=== PATIENT | female | born 1940 | race Caucasian/White ===

== ENCOUNTER 2020-06-29 08:09 | Outpatient (REF) | payer MEDICARE, OTHER, SELFPAY ==
--- NOTE | ~2020-06-29 | XR_ITS ---
EXAMINATION: XR knee RT 2V, XR knee standing BI CLINICAL INFORMATION: Pain COMPARISON: None available at the time of this dictation. TECHNIQUE: Bilateral frontal, right lateral patella sunrise view. FINDINGS: BONES: No fracture or dislocation is present. JOINTS: Narrowing of joint spaces and developed osteophytes from the edges of articular surfaces suggest degenerative osteoarthritis. 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 No right knee joint effusions.
--- NOTE | ~2020-06-29 | XR_ITS ---
EXAMINATION: XR knee RT 2V, XR knee standing BI CLINICAL INFORMATION: Pain COMPARISON: None available at the time of this dictation. TECHNIQUE: Bilateral frontal, right lateral patella sunrise view. FINDINGS: BONES: No fracture or dislocation is present. JOINTS: Narrowing of joint spaces and developed osteophytes from the edges of articular surfaces suggest degenerative osteoarthritis. 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 No right knee joint effusions.
== END 2020-06-29 08:10 | disposition home or self-care (01) ==
LOC: HO.HOSX 08:09
PROVIDERS: Visit Provider Physician Assistant
DX: M25.561 Pain in right knee (principal); M25.562 Pain in left knee; M17.11 Unilateral primary osteoarthritis, right knee
CPT/HCPCS: 20610; 73560; 73565; 99202; J1040

== ENCOUNTER 2020-08-07 09:00 | Outpatient (RCR) | payer MEDICARE, OTHER, SELFPAY ==
--- NOTE | 2020-07-12 12:59 | MHC.PT.EP ---
[facility] [place] Office [place] Office [place] Office [address] [place] [address] Dr Maru Anthony [address] [phone] F: [phone] F: [phone] F: [phone] F: [phone] Physical Therapy Plan of Care Date of Evaluation: Date of Surgery: NA Diagnosis: OA R KNEE Assessment: Pt IS 79 YO F REFERRED TO PT FROM [facility] AT [facility] WITH R KNEE OA. REPORTS KNEE HAS BEEN BOTHERING HER FOR AT LEAST 8 WEEKS WHEN SHE MAY HAVE TWISTED IT IN HER SLEEP. REPORTS SIGNIF RELIEF FROM CORTISONE INJECTION ABOUT 2 WEEKS AGO, BUT CONTINUES WITH ANTALGIC GT WITH LIITED KNEE ROM AND PROPTIOCEPTION. Pt WITH MEDIAL JT LINE TENDERNESS AND LAT TILTED PATELLA (HAS BEEN STARTED ON STRENGTHENING AND TAPING PER HER DTR IN LAW WHO IS A PT, WITH GOOD RESULTS.) REPORTS NO SIGNIFICANT LIMITATION TO ADLS ALTHOUGH SEEMINGLY PUSHING THROUGH ACTIVITIES WITH SOME PAIN. GOOD PT CANDIDATE TO ADDRESS THESE ISSUES WITH HOME PROGRAM, ST WORK/KT. Pt IS RETIRED AND LIVES WITH HER (?ONSET OF DEMENTIA). HAS STAIRS TO [place]. XRAY + FOR ARTHITIS Frequency and Duration: The patient will be seen 2X/WK X 6 WKS Short Term Goals: 1. INCREASED AWARENESS KNEE CARE/SELF KT 2. I HEP WITH DC EX PLAN 3. 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 INCREASED R KNEE ROM 0-120 DEGREES 2. IMPROVED GT (LESS LIMP) 3. DECREASED KNEE PAIN AT LEAST 50% WITH ADLS 4. IMPROVED LEFI Treatment Plan: Modalities to reduce pain, spasms and effusion. Manual therapy to restore motion and function. Therapeutic exercise to improve strength and flexibility. Neuromuscular re-education for posture and balance. Therapeutic activities to return to functional activities of daily living. Electronically signed by: LISA PATEL PT Please sign and return to therapist. Thank you for your referral.
--- NOTE | 2020-09-22 09:42 | MHC.PT.DC ---
[facility] [place] Office [place] Office [place] Office [address] Maru Anthony [address] [phone] F: [phone] F: [phone] F: [phone] F: [phone] Physical Therapy Discharge Report Diagnosis: OA R KNEE Date of Surgery: NA Date of Evaluation: 07/12/20 Date of Discharge: 08/07/20 Treatments to Date: 8 Cancellations to Date: No Shows to Date: Discharge Status: Achieved Goals Improved Function Independent with HEP Patient Elected to Stop Discharge Summary: PER LAST NOTE ON 08/07/20 PER RAJAN FOUNTAIN PT,DPT [-3 to 115 AROM. Pt REQUESTING TRANSITION TO HOME PROGRAM, PT GOALS MET] Electronically signed by: LISA PATEL PT Please sign and return to therapist. Thank you for your referral.
== END 2020-09-22 09:42 | disposition home or self-care (01) ==
LOC: HO.PTWFD 09:00
PROVIDERS: PCP Internal Medicine; Visit Provider Physician Assistant
DX: M17.11 Unilateral primary osteoarthritis, right knee (principal)
CPT/HCPCS: 97035; 97110; 97140; 97150; 97161

== ENCOUNTER 2023-08-07 10:15 | Outpatient (REF) | payer MEDICARE, OTHER, SELFPAY ==
[2023-08-08 21:23] LABS: Gliadin Deamidated IgA Ab <1.0 U/mL; Gliadin Deamidated IgG Ab <1.0 U/mL; Transglutaminase Ab IgG <1.0 U/mL; Transglutaminase IgA <1.0 U/mL
[2023-08-08 22:33] LABS: Immunoglobulin A 242 mg/dL (70-320)
[2023-08-11 14:13] LABS: Endomysial IgA Antibody Negative (Negative)
== END 2023-08-07 10:16 | disposition home or self-care (01) ==
LOC: HO.10HDL 10:15
PROVIDERS: Visit Provider Internal Medicine
DX: R19.7 Diarrhea, unspecified (principal); R11.0 Nausea
CPT/HCPCS: 36415; 82784; 86231; 86258; 86364

== ENCOUNTER 2023-08-12 12:09 | Outpatient (REF) | payer MEDICARE, OTHER, SELFPAY ==
[2023-08-12 13:41] LABS: CDiff Gene PCR NEGATIVE (Negative)
[2023-08-12 14:52] LABS: Adenovirus F 40/41 Not Detected (Not Detect.); Astrovirus Not Detected (Not Detect.); Campylobacter Not Detected (Not Detect.); Cryptosporidium Not Detected (Not Detect.); Cyclospora cayetanensis Not Detected (Not Detect.); E. coli EAEC Not Detected (Not Detect.); E. coli EPEC Not Detected (Not Detect.); E. coli ETEC Not Detected (Not Detect.); E. coli STEC Not Detected (Not Detect.); Entamoeba histolytica Not Detected (Not Detect.); Giardia lamblia Not Detected (Not Detect.); Norovirus GI/GII Not Detected (Not Detect.); Plesiomonas shigelloides Not Detected (Not Detect.); Rotavirus A Not Detected (Not Detect.); Salmonella Not Detected (Not Detect.); Sapovirus Not Detected (Not Detect.); Shigella sp./EIEC Not Detected (Not Detect.); Vibrio Not Detected (Not Detect.); Vibrio Cholerae Not Detected (Not Detect.); Yersinia enterocolitica Not Detected (Not Detect.)
[2023-08-18 16:59] LABS: Calprotectin, Fecal 221 mcg/g
== END 2023-08-12 12:10 | disposition home or self-care (01) ==
LOC: HO.LNP 12:09
PROVIDERS: Visit Provider Internal Medicine
DX: R19.7 Diarrhea, unspecified (principal); R11.0 Nausea
CPT/HCPCS: 83993; 87329; 87493; 87507

== ENCOUNTER 2025-01-04 13:36 | Outpatient (RCR) | payer MEDICARE, OTHER, SELFPAY | END 2025-01-06 17:58 | disposition home or self-care (01) | LOC: HO.PT 13:36 | PROVIDERS: PCP Student in an Organized Health Care Education/Training Program; Visit Provider Orthopaedic Surgery | DX: M12.811 Other specific arthropathies, not elsewhere classified, right shoulder (principal) | CPT/HCPCS: 97110; 97140; 97161 ==